=== PATIENT | male | born 2000 | race Caucasian/White ===

== ENCOUNTER 2021-08-11 20:19 | Emergency (ER) | payer OTHER, SELFPAY ==
[2021-08-11 20:24] VITALS: BP 158/83; PULSE 45; RESP 16; O2SAT 97; BMI 24.3
--- NOTE | 2021-08-11 20:28 | DI.RAD.S_ITS ---
PROCEDURE: XR WRIST RT MIN 3V INDICATIONS: fall TECHNIQUE: 4 views of the wrist were acquired. COMPARISON: None. FINDINGS: Bones: No fractures or dislocations. No suspicious bony lesions. Soft tissues: No suspicious soft tissue calcifications. IMPRESSION: No acute findings. If the patient's pain or other symptoms persist, consider further evaluation with MRI Dictated by: Julius Green M.D. on 08/11/2021 at 21:18 Approved by: Jluius Green M.D. on 08/11/2021 at 21:20
--- NOTE | 2021-08-11 21:17 | ED.UPPEXIN ---
HPI - Extremity Injury (Upper) General Chief Complaint: Extremity Injury, Upper Stated Complaint: hurt right arm Time Seen by Provider: 08/11/21 20:31 History of Present Illness HPI narrative: 21-year-old maleNonsmoker with noncontributory medical history presents with family in the chief complaint of a right wrist injury earlier tonight. He states he was playing soccer as a goalie and had his right hand up in the ball forces wrist back. He denies any direct bony trauma. His pain is worse when he moves and improves with rest. He denies any numbness, tingling or weakness. He denies any history of the same. He is otherwise well and free of complaint Review of Systems Review of Systems Narrative: GENERAL: Denies chills, fatigue, malaise, fever, sweats. HEENT: Denies sinus pain, ear pain, sore throat, difficulty swallowing, dizziness. RESPIRATORY: Denies dyspnea, cough, wheezing, hemoptysis, sputum. CARDIOVASCULAR: Denies chest pain, palpitations, orthopnea, edema, GASTROINTESTINAL: Denies nausea, vomiting, abdominal pain, diarrhea, constipation, melena. : Denies dysuria, frequency, incontinence, hematuria, urinary retention. MUSCULOSKELETAL: See HPI SKIN: Denies rash, skin lesions, or other NEUROLOGIC: Denies weakness, headache, numbness, change in speech, confusion, seizures, incoordination. PSYCHIATRIC: No concerning psychosocial issues. 12 point review of systems is negative except for those stated above Exam Narrative Exam Narrative: GEN: AOx3 and in mild distress EYES: Pupils are equal, round, and reactive to light and accommodation. Extraoccular muscles are intact bilaterally. There is no subconjunctival hemorrhage or exudate. CHEST: Lungs are clear to auscultation bilaterally and free of wheezes, rales, or rhonchi. Heart rate is regular rhythm, there are no murmurs, clicks, rubs, or gallops. There is no chest wall tenderness. ABD: Abdomen is soft and nontender. There is no guarding or rebound. Bowel sounds are normal in all 4 quadrants. There is no mass or organomegaly. EXT: Full but painful range of motion at the right wrist and right thumb, there is minimal swelling and no obvious deformity. Minimal increased pain with axial loading of some, no significant pain with palpation of anatomic snuffbox. SKIN: Warm, pink, and dry. No erythema or rash Initial Vital Signs Initial Vital Signs: Vital Signs Pulse Rate 45 L 08/11/21 20:24 Respiratory Rate 16 08/11/21 20:24 Blood Pressure 158/83 H 08/11/21 20:24 Pulse Oximetry 97 08/11/21 20:24 Procedures Orthopedic Splinting/Casting Injury #1: Side: right Upper Extremity Injury Location: wrist Upper Extremity Immobilizer: thumb spica Post splinting neuro exam: intact Post splinting vascular exam: intact Placed by: Nursing Course Orders Ordered: ED Orders 08/11/21 20:28 XR wrist RT min 3V Stat Vital Signs Vital signs: Vital Signs - 8 hr 08/11/21 20:24 Pulse Rate 45 L Respiratory Rate 16 Blood Pressure 158/83 H Pulse Oximetry 97 MDM - Extremity Injury (Upper) Imaging Data Extremity x-ray #1: Radiologist's Impression: [address] [address] XRay Report Signed Patient: Anmol Sandy MR#: [id number] : 2000 Acct:[id number] Age/Sex: 21 / M Date of Service: 08/11/21 Loc: ED Accession Number: [id number] ?? Procedure: XR wrist RT min 3V Ordering Provider: Dipak Duffy D.O. PROCEDURE:? XR WRIST RT MIN 3V ? INDICATIONS: fall ? TECHNIQUE:? 4 views of the wrist were acquired.? ? COMPARISON:? None. ? FINDINGS:? ? Bones:? No fractures or dislocations.? No suspicious bony lesions.? ? Soft tissues:? No suspicious soft tissue calcifications.? ? IMPRESSION:? No acute findings. If the patient's pain or other symptoms persist, consider further evaluation with MRI ? ? ? Dictated by: Julius Green M.D. on 08/11/2021 at 21:18 ? ? Approved by: Julius Green M.D. on 08/11/2021 at 21:20 ? Discharge Plan Departure Patient Disposition: Home Clinical Impression: Sprain and strain of wrist Instructions: DI for Wrist Sprain Activity Restrictions/Additional Instructions: *You have been diagnosed with [sprain of right wrist, physical exam and x-ray are very reassuring and there is no evidence of dislocation or fracture *What to do: *Please continue to take your regular medications as directed. [ ] New medication prescriptions sent to your pharmacy: [ ] [ ] New medication written as a paper prescription [x ] No new medications given *Please follow up with your primary care provider in 2-3 days, call for an appointment. Let them know you were seen in the Emergency Department and that we ask that you be seen in follow up. We will electronically transmit a record of today's note if your PCP is in our system *If you do not have a primary care provider please contact [facility] Resource line at [phone]. They will ask some questions about your medical history and help get you set up with a doctor in the community. *Return to Emergency Department if you should have any new, worsening or concerning symptoms, such as [fever greater than 101 F, shaking chills, worsening pain, persistent vomiting or other bothersome symptoms]
== END 2021-08-11 21:40 | disposition home or self-care (01) ==
PROVIDERS: Emergency Provider Emergency Medicine
DX: S63.501A Unspecified sprain of right wrist, initial encounter (principal); S66.911A Strain of unspecified muscle, fascia and tendon at wrist and hand level, right hand, initial encounter; W21.02XA Struck by soccer ball, initial encounter; Y93.66 Activity, soccer
CPT/HCPCS: 73110; 99283